=== PATIENT | female | born 1950 | race Caucasian/White ===

== ENCOUNTER 2019-08-08 15:57 | Outpatient (CLI) | payer MEDICARE, OTHER ==
--- NOTE | 2019-08-09 09:44 | Mammography Report ---
Reason: ROUTINE MAMMO Procedure Date: 08/08/2019 Accession Number: [id number] / [id number] Procedure: JAMI - Screening Mammo w/Danny CPT Code: Final Report FULL RESULT: EXAM: Screening Mammo w/Danny DATE: 08/08/2019 4:28 PM CLINICAL HISTORY: Screening encounter. TECHNIQUE: (B) - Bilateral CC and MLO views were obtained. COMPARISON: 04/10/2015 through 11/25/2011. PARENCHYMAL PATTERN: (F) - The breast(s) demonstrate(s) diffuse fatty replacement. FINDINGS: There are no suspicious masses, calcifications, or areas of distortion. IMPRESSION: Negative examination. BI-RADS category 1. RECOMMENDATION: (ANNUAL) - Recommend routine annual screening mammography. BI-RADS CATEGORY: (1) - Negative. STANDARD QUALIFYING STATEMENTS: 1. This examination was not reviewed with the aid of Computer-Aided Detection (CAD). 2. A negative or benign imaging report should not preclude biopsy if clinically suspicious findings are present. 3. Dense breasts may obscure an underlying neoplasm. 4. This examination was reviewed with the aid of 3D breast imaging (tomosynthesis).
== END 2019-08-08 15:58 | disposition home or self-care (01) ==
LOC: DI 15:57
PROVIDERS: ATTEND Internal Medicine
DX: Z12.31 Encounter for screening mammogram for malignant neoplasm of breast (principal)
CPT/HCPCS: 77063; 77067

== ENCOUNTER 2019-08-27 14:37 | Outpatient (CLI) | payer MEDICARE, OTHER ==
[2019-08-27] MEDS ORDERED: IOVERSOL 320 100 ML VIAL IVP ONE ×2 (14:45→15:25)
[2019-08-27 15:01] LABS: CREATININE 0.8 mg/dL (0.4-1.0)
--- NOTE | 2019-08-27 16:10 | CT Report ---
Reason: CHRONIC COUGH Procedure Date: 08/27/2019 Accession Number: [id number] / [id number] Procedure: CT - CHEST W CPT Code: Final Report FULL RESULT: EXAM: CT CHEST EXAM DATE: 08/27/2019 03:24 PM. CLINICAL HISTORY: Chronic cough. COMPARISONS: None. TECHNIQUE: Routine helical CT imaging was performed through the chest. IV contrast: 80 mL Optiray 320. Reconstructions: Coronal and sagittal. In accordance with CT protocol optimization, one or more of the following dose reduction techniques were utilized for this exam: automated exposure control, adjustment of mA and/or KV based on patient size, or use of iterative reconstructive technique. FINDINGS: Lungs/Pleura: There is apparent consolidation and bronchiectasis in the right middle lobe with peribronchovascular groundglass extending along the same distribution. Minimal scarring or atelectasis seen posteriorly in the left lower lobe. There is a 2 mm nodule in the right lung apex as seen on image 54 series 4 and a 3 mm right upper lung nodule on image 83. Subtle groundglass is also seen in the lingula distribution. Mediastinum: There is a small pericardial effusion. There is no mediastinal adenopathy by size criteria. Hilar lymph nodes do not meet size criteria. Bones: Unremarkable. Visualized Abdomen: Unremarkable. Other: None. IMPRESSION: Small pericardial effusion, greater than expected for physiologic. Right middle lobe consolidation with prominent bronchiectasis. Subtle groundglass in the lingula. While imaging findings are not specific, atypical infection such as Mycobacterium avium complex is associated with CT findings predominantly in the right middle lobe and lingula with sequela eventually leading to bronchiectasis. While malignancy is not excluded, it is felt to be less likely given the prominent component of bronchiectasis. Recommendation: Consideration for pulmonology evaluation. RADIA
== END 2019-08-27 14:38 | disposition home or self-care (01) ==
LOC: DI 14:37
PROVIDERS: ATTEND Internal Medicine
DX: J18.1 Lobar pneumonia, unspecified organism (principal); J47.9 Bronchiectasis, uncomplicated; Z79.899 Other long term (current) drug therapy
CPT/HCPCS: 36415; 71260; 80048; Q9967

== ENCOUNTER 2020-03-11 08:40 | Outpatient (CLI) | payer MEDICARE, OTHER ==
--- NOTE | 2020-03-11 09:34 | XRAY Report ---
PROCEDURE: Chest 2 View X-Ray INDICATIONS: F/U RML MASS LIKE INFILTRATE,BRONCHIECTASIS TECHNIQUE: 2 view(s) of the chest. COMPARISON: Prior CT scanning 08/27/2019. FINDINGS: Surgical changes and devices: None. Lungs and pleura: No pleural effusions or pneumothorax. Lungs are much improved, with a band of wha t appears to have represented pneumonia superimposed on the right middle lobe now resolved. No centra l mass lesion is seen.. Mediastinum: Mediastinal contours are normal. Heart size is normal. Bones and chest wall: No suspicious bony abnormalities. Soft tissues appear unremarkable. IMPRESSION: Resolution of a region of pneumonia superimposed on the right middle lobe seen on CT sca nning 08/27/2013. Reviewed by: Aftab Blandon MD on 03/11/2020 9:33 AM PDT Approved by: Aftab Blandon MD on 03/11/2020 9:33 AM PDT Station ID: [id number]
== END 2020-03-11 08:41 | disposition home or self-care (01) ==
LOC: DI 08:40
PROVIDERS: ATTEND Internal Medicine Pulmonary Disease
DX: J18.1 Lobar pneumonia, unspecified organism (principal)
CPT/HCPCS: 71046

== ENCOUNTER 2023-07-12 08:41 | Outpatient (CLI) | payer MEDICARE, OTHER ==
--- NOTE | 2023-07-13 10:06 | Mammography Report ---
BILATERAL DIGITAL SCREENING MAMMOGRAM 3D/2D: 07/12/2023 CLINICAL: Routine screening. Comparison is made to exams dated: 08/08/2019 mammogram, 04/10/2015 mammogram, and 08/26/2013 mammogr am - [facility]. There are scattered areas of fibroglandular density in both breasts (category b / 25%-50% glandular t issue). No significant masses, calcifications, or other findings are seen in either breast. There has been no significant interval change. IMPRESSION: NEGATIVE There is no mammographic evidence of malignancy. A 1 year screening mammogram is recommended. Based on the Tyrer Cuzick model (a risk assessment model) the patients lifetime risk is 3.4% and her 10 year risk is 3.1%. According to the ACR, ACS, and NCCN guidelines, an annual breast MRI exam ольга g with mammogram is recommended if the patients lifetime risk is 20% or greater. This exam was interpreted at Station ID: [id number]. NOTE: For mammograms, a report in lay terms will be sent to the patient. Approximately 15% of breast malignancies will not be visualized mammographically. In the management of a palpable breast mass, a negative mammogram must not discourage biopsy of a clinically suspicious lesion. Electronically Signed By: Jerad [email or web address]/[email or web address]:07/12/2023 18:45:52 letter sent: No_Letter ACR BI-RADS Category 1: Negative 3341F PARENCHYMAL PATTERN: (A) - The breast(s) demonstrate(s) scattered fibroglandular densities. BI-RADS CATEGORY: (1) - 1 Mammogram [id number] 1 year screening LATERALITY: (B)
== END 2023-07-12 08:42 | disposition home or self-care (01) ==
LOC: DI 08:41
PROVIDERS: ATTEND Internal Medicine
DX: Z12.31 Encounter for screening mammogram for malignant neoplasm of breast (principal); R92.323 Mammographic fibroglandular density, bilateral breasts